=== PATIENT | female | born 1990 | race Caucasian/White ===

== ENCOUNTER 2018-06-25 00:21 | Emergency (ER) | payer MEDICAID, OTHER ==
[2018-06-25] MEDS: traMADol 50 MG TAB PO (03:05)
[2018-06-25] MEDS: KETOROLAC 60 MG INJ IM (03:06)
== END 2018-06-25 05:58 | disposition home or self-care (01) ==
LOC: FTE 00:21
DX: S89.92XA Unspecified injury of left lower leg, initial encounter (principal); M25.462 Effusion, left knee; W18.39XA Other fall on same level, initial encounter; Y92.251 Museum as the place of occurrence of the external cause
CPT/HCPCS: 73562; 73590; 81025; 96372; 99284-25